=== PATIENT | male | born 1975 | race African-American/Black ===

== ENCOUNTER 2022-11-10 22:12 | Emergency (ER) | payer SELFPAY ==
[2022-11-11] MEDS ORDERED: Magnesium Citrate 300 ML BOT PO SCH (03:00)
== END 2022-11-11 02:57 | disposition home or self-care (01) ==
LOC: ERS 22:12
DX: K59.00 Constipation, unspecified (principal); K92.2 Gastrointestinal hemorrhage, unspecified
CPT/HCPCS: 99283